=== PATIENT | female | born 1950 | race Asian ===

== ENCOUNTER 2017-07-09 19:33 | Emergency (ER) | payer OTHER, MEDICAID ==
[2017-07-09 19:52] VITALS: BP 141/75
== END 2017-07-09 21:29 | disposition home or self-care (01) ==
LOC: ED 19:33
DX: S16.1XXA Strain of muscle, fascia and tendon at neck level, initial encounter (principal); E11.9 Type 2 diabetes mellitus without complications; E78.5 Hyperlipidemia, unspecified; V49.59XA Passenger injured in collision with other motor vehicles in traffic accident, initial encounter; Y93.89 Activity, other specified; Y99.8 Other external cause status; Y92.89 Other specified places as the place of occurrence of the external cause